=== PATIENT | female | born 1980 | race African-American/Black ===

== ENCOUNTER 2024-09-29 05:42 | Emergency (ER) | payer OTHER ==
[2024-09-29 05:51] VITALS: RESP 18
--- NOTE | 2024-09-29 06:45 | ED ---
General Adult HPI - General Chief complaint: Extremity Injury, Upper Stated complaint: IHS-Hit by hilo Time Seen by Provider: 09/29/24 06:05 Source: patient, RN notes reviewed Mode of arrival: ambulatory Limitations: no limitations - History of Present Illness Initial comments: 43-year-old female presented ER status post work injury. Patient reports she w as at work earlier today and another worker, switching bins on a [employer], ran into her. She states impact occurred on the lateral aspect of her right knee. Patient states she was jolted and braced her self from falling. She denies actually falling. Denies head injury. She believes she may have tweaked her right shoulder in the process as she is currently complaining of a sore right shoulder discomfort which is worse with motion. Patient states majority of discomfort to right knee currently rating it a 5 out of 10. She denies any paresthesias to bilateral upper or lower extremities. No neck pain or back pain. She has not taken anything for pain at this time. - Related Data Allergies Allergy/AdvReac Type Severity Reaction Status Date / Time No Known Allergies Allergy Verified 09/29/24 05:51 Review of Systems ROS Statement: Those systems with pertinent positive or pertinent negative responses have been documented in the HPI. ROS Other: All systems not noted in ROS Statement are negative. Past Medical History History of Any Multi-Drug Resistant Organisms: None Reported Past Surgical History: Appendectomy Past Psychological History: No Psychological Hx Reported Smoking Status: Never smoker Past Alcohol Use History: None Reported Past Drug Use History: Marijuana General Exam Limitations: no limitations General appearance: alert, in no apparent distress Head exam: Present: atraumatic, normocephalic, normal inspection Neck exam: Present: normal inspection. Absent: tenderness, meningismus, lymphadenopathy Respiratory exam: Present: normal lung sounds bilaterally. Absent: respiratory distress, wheezes, rales, rhonchi, stridor Cardiovascular Exam: Present: regular rate, normal rhythm, normal heart sounds. Absent: systolic murmur, diastolic murmur, rubs, gallop, clicks Extremities exam: Present: normal inspection, full ROM, tenderness (Anterior right knee and medial joint line. Tenderness noted to right AC joint.), normal capillary refill (2+ bilateral radial and PT pulses) Neurological exam: Present: alert, oriented X3, CN II-XII intact Skin exam: Present: warm, dry, intact, normal color. Absent: rash Course Vital Signs 09/29/24 05:50 Temperature 98.4 F Pulse Rate 63 Respiratory 18 Rate Blood Pressure 119/76 O2 Sat by Pulse 98 Oximetry Medical Decision Making - Medical Decision Making Was pt. sent in by a medical professional or institution ([facility], [facility], urgent care, hospital, or senior care...) When possible be specific @ -[No] Did you speak to anyone other than the patient for history (EMS, parent, family, police, friend...)? What history was obtained from this source @ -[No] Did you review nursing and triage notes (agree or disagree)? Why? @ -[I reviewed and agree with nursing and triage notes] Were old charts reviewed (outside hosp., previous admission, EMS record, old EKG, old radiological studies, urgent care reports/EKG's, senior care records)? Report findings @ -[No old charts were reviewed] Differential Diagnosis (chest pain, altered mental status, abdominal pain women, abdominal pain men, vaginal bleeding, weakness, fever, dyspnea, syncope, headache, dizziness, GI bleed, back pain, seizure, CVA, palpatations, mental health, musculoskeletal)? @ -[not applicable] EKG interpreted by me (3pts min.). @ -[As above] X-rays interpreted by me (1pt min.). @ -[None done] CT interpreted by me (1pt min.). @ -[None done] U/S interpreted by me (1pt. min.). @ -[None done] What testing was considered but not performed or refused? (CT, X-rays, U/S, labs)? Why? @ -[None] What meds were considered but not given or refused? Why? @ -[None] Did you discuss the management of the patient with other professionals (professionals i.e. [facility], [facility], lab, RT, psych nurse, social media coordinator, senior analyst programmer, teacher, intelligence officer, case aide)? Give summary @ -[No] Was smoking cessation discussed for >3mins.? @ -[No] Was critical care preformed (if so, how long)? @ -[No] Were there social determinants of health that impacted care today? How? (Homelessness, low income, unemployed, alcoholism, drug addiction, transportation, low edu. Level, literacy, decrease access to med. care, m[facility], r ehab)? @ -[No] Was there de-escalation of care discussed even if they declined (Discuss DNR or withdrawal of care, Hospice)? DNR status @ -[No] What co-morbidities impacted this encounter? (DM, HTN, Smoking, COPD, CAD, Cancer, CVA, ARF, Chemo, Hep., AIDS, mental health diagnosis, sleep apnea, morbid obesity)? @ -[None] Was patient admitted / discharged? Hospital course, mention meds given and r oute, prescriptions, significant lab abnormalities, going to OR and other pertinent info. @ -[hospital course] Undiagnosed new problem with uncertain prognosis? @ -[No] Drug Therapy requiring intensive monitoring for toxicity (Heparin, Nitro, Insulin, Cardizem)? @ -[No] Were any procedures done? @ -[No] Diagnosis/symptom? @ -[default] Acute, or Chronic, or Acute on Chronic? @ -[default] Uncomplicated (without systemic symptoms) or Complicated (systemic symptoms)? @ -[default] Side effects of treatment? @ -[No] Exacerbation, Progression, or Severe Exacerbation? @ -[No] Poses a threat to life or bodily function? How? (Chest pain, [place], [place], pneumonia, PE, COPD, DKA, ARF, appy, cholecystitis, CVA, Diverticulitis, Homicidal, Suicidal, threat to staff... and all critical care pts) @ -[No] Disposition Clinical Impression: Tibial plateau fracture Disposition: HOME SELF-CARE Condition: Stable Instructions (If sedation given, give patient instructions): Osteoarthritis (DC) Additional Instructions: Follow-up with orthopedics. You may take [id number] Tylenol pain control. Continue to rest ice and elevate. Remain nonweightbearing right lower extremity. Return to the ER for any new or worsening symptoms Is patient prescribed a controlled substance at d/c from ED?: No Referrals: None,Stated [Primary Care Provider] - 1-2 days Jerry Gamble MD [STAFF PHYSICIAN] - 1-2 days Time of Disposition: 07:48
--- NOTE | 2024-09-29 07:32 | XR ---
EXAMINATION TYPE: XR shoulder complete 3 views RT, XR knee complete 3 views RT DATE OF EXAM: 09/29/2024 7:07 AM COMPARISON: None CLINICAL INDICATION: Female, 43 years old with history of pain s/p fall; PHH, pain FINDINGS: Right shoulder: Mild joint space narrowing at the AC joint. No abnormal offset at the joint. Acromial space is preser peewee. No acute fracture, subluxation, dislocation. Right knee: Possible small to moderate knee joint effusion. There is advanced tricompartmental degenerative spurr ing. Subtle vertically oriented lucency noted projecting over the lateral tibial plateau which may be projectional. Not clearly seen on the lateral view. No additional acute fracture, subluxation, dislo cation is seen. IMPRESSION: 1. Right shoulder: No acute osseous abnormality seen. 2. Right knee: Moderate to severe tricompartmental OA. Unusual given patient's age. Clinically correl ate. IN ADDITION, THERE IS A SUBTLE VERTICALLY ORIENTED LUCENCY PROJECTING AT THE LATERAL TIBIAL PLAT EAU WHICH MAY BE PROJECTIONAL. UNABLE TO EXCLUDE A NONDISPLACED TIBIAL PLATEAU FRACTURE. [facility], , 09/29/2024 7:30 AM
[2024-09-29 08:18] VITALS: BP 118/70; PULSE 742; TEMP 98
== END 2024-09-29 08:28 | disposition home or self-care (01) ==
LOC: EC 05:42
DX: S82.201A Unspecified fracture of shaft of right tibia, initial encounter for closed fracture (principal); W22.8XXA Striking against or struck by other objects, initial encounter; W19.XXXA Unspecified fall, initial encounter
CPT/HCPCS: 73030; 73562; 99283; L1830